=== PATIENT | female | born 1950 | race Caucasian/White ===

== ENCOUNTER 2017-07-20 08:12 | Inpatient (IN) | payer MEDICARE ==
[2017-07-19 15:06] LABS: BASOPHILS # (AUTO) 0.1 (0.0-0.1); BASOPHILS % 0.6 % (0.0-1.0); EOSINOPHILS # (AUTO) 0.2 (0.0-0.4); EOSINOPHILS % 1.7 % (0.0-6.0); HEMOGLOBIN 12.5 g/dL (12.0-16.0); LYMPHOCYTES # (AUTO) 2.9 (1.0-3.2); LYMPHOCYTES % 25.5 % (18.0-39.1); MEAN CORPUSCULAR HEMOGLOBIN 27.4 pg (28-32); MEAN CORPUSCULAR HGB CONC 33.8 g/dL (31-35); MEAN CORPUSCULAR VOLUME 81.1 fL (81-99); MONOCYTES # (AUTO) 0.8 (0.2-0.8); MONOCYTES % 6.8 % (4.4-11.3); NEUTROPHILS # (AUTO) 7.5 (2.1-6.9); PLATELET COUNT 265 x10e3/uL (140-360); RED BLOOD COUNT 4.56 x10e6/uL (3.6-5.1); RED CELL DISTRIBUTION WIDTH 12.8 % (11.7-14.4)
[2017-07-19 15:23] LABS: ANION GAP 13.5 mmol/L (8-16); CREATININE, SERUM 1.5 mg/dL (0.57-1.11); POTASSIUM 4.5 mmol/L (3.5-5.1)
--- NOTE | 2017-07-19 15:42 | Diagnostic Imaging Report ---
PROCEDURE: Frontal and lateral views of the chest. COMPARISON: None. INDICATIONS: PRE-OPERATIVE CHEST XRAY FOR SURGERY FINDINGS: Lines/tubes: None. Lungs: The lungs are well inflated and clear. There is no evidence of pneumonia or pulmonary edema. Pleura: There is no pleural effusion or pneumothorax. Heart and mediastinum: The heart and the mediastinum are normal. Atherosclerotic calcifications in the aorta. Bones: No acute bony abnormality. IMPRESSION: No acute cardiopulmonary disease. Dictated by: Stephane Mai M.D. on 07/19/2017 at 15:44 Electronically approved by: Stephane Mai M.D. on 07/19/2017 at 15:44
[~2017-07-20] VITALS: Ht 162.6 cm; Wt 81.6 kg
[~2017-07-20 08:12] MED LIST: ACETAMINOPHEN 1000 MG/100 ML 100 ML IV ONE; BUPIVACAINE HCL 0.5% INJ 30 ML VIAL INJ ONE; CEPHALEXIN500 MG PO; DEXAMETHASONE SOD PHOS INJ 4 MG/ML VIAL ONE; GLIMEPIRIDE2 MG PO; JANUVIA100 MG PO; LEVOTHYROXINE50 MCG PO; LISINOPRIL2.5 MG PO; NEOSTIGMINE 1 MG/ML 10ML VIAL ONE; PRAVASTATIN SOD20 MG PO
--- OUTSIDE RECORDS SUMMARY | 2017-07-20 08:13 | XMS REPORT ---
Author Author [facility] Address Unknown Phone Unavailable Care Team Providers Care Commissioner Of Officials Name Role Phone ARTEM AKHTAR Unavailable Unavailable Problems This patient has no known problems. Allergies, Adverse Reactions, Alerts This patient has no known allergies or adverse reactions. Medications This patient has no known medications. Results Test Description Test Time Test Comments Text Results Atomic Results Result Comments CHEST 2 VIEWS [facility] [address], [place] [address] Patient Name: KATHY ANTONIO MR #: [id number] : 1950 Age/Sex: 67/F Req #: [id number] Adm Physician: Ordered by: ARTEM AKHTAR DPM Report #: [id number] Location: OR Room/Bed: Procedure: [id number] DX/CHEST 2 VIEWS Exam Date: 07/19/17 Exam Time: 1508 REPORT STATUS: Signed PROCEDURE: Frontal and lateral views of the chest. COMPARISON: None. INDICATIONS: PRE-OPERATIVE CHEST XRAY FOR SURGERY FINDINGS: Lines/tubes: None. Lungs: The lungs are well inflated and clear. There is no evidence of pneumonia or pulmonary edema. Pleura: There is no pleural effusion or pneumothorax. Heart and mediastinum: The heart and the mediastinum are normal. Atherosclerotic calcifications in the aorta. Bones: No acute bony abnormality. IMPRESSION: No acute cardiopulmonary disease. Dictated by: Nicolasa Mai M.D. on 07/19/2017 at 15:44 Electronically approved by: Nicolasa Mai M.D. on 07/19/2017 at 15:44 Dictated By: NICOLASA MAI MD [id number] Transcribed By: JYOTHI on 07/19/17 1549 COPY TO: ARTEM AKHTAR DPM
[2017-07-20] MEDS ORDERED: VANCOMYCIN 1GM/NS 250 ML 250 ML ONE (08:38)
[2017-07-20] MEDS ORDERED: INSULIN REGULAR, HUMAN 100 UNIT/1 ML 3ML VIAL ONE (08:54)
[2017-07-20] MEDS ORDERED: MIDAZOLAM HCL 2 MG/2 ML VIAL ONE (11:35)
[2017-07-20] MEDS ORDERED: FENTANYL CITRATE/PF 100MCG/2 ML INJ ONE (11:35)
[2017-07-20 13:31] VITALS: BP 195/86
--- NOTE | 2017-07-20 15:04 | Operative Report ---
DATE OF PROCEDURE: July 20, 2017 PREOPERATIVE DIAGNOSES 1. Osteomyelitis, 4th digit, left foot. 2. Large ulcer, lateral aspect, 4th digit, left foot. POSTOPERATIVE DIAGNOSES 1. Osteomyelitis, 4th digit, left foot. 2. Large ulcer, lateral aspect, 4th digit, left foot. TITLE OF OPERATIONS 1. Partial amputation of the 4th digit of left foot with bone biopsy and removal of infected bone from the proximal phalanx and the base of the intermediate phalanx with a human tissue allograft. 2. Debridement of wound to bone with for the separate wound of the lateral aspect of the 4th digit, left foot. ANESTHESIA: General endotracheal. HEMOSTASIS: A left thigh tourniquet at 350 mmHg. PROCEDURE IN DETAIL: The patient was taken to the operating room in a mildly sedated state and placed upon the operating table in the supine position. Following induction of general anesthetic, the left lower extremity was elevated to 60 degrees to exsanguinate before inflating the pneumatic thigh tourniquet to 350 mmHg for hemostasis. The left lower extremity was placed on the operating table prior to performing the procedure. PROCEDURE #1: Partial amputation and debridement of bone, 4th digit, left foot with bone biopsy. A linear longitudinal incision was made overlying the proximal interphalangeal joint of the 4th digit of the left foot. The incision was deepened via sharp and blunt dissection down to the level of the dorsal capsular structure and extensor tendon. Transverse tenotomy was performed, and the underlying tissue was noted to be significantly destroyed bone with the entirety of the interphalangeal joint infected. The infected and necrotic bone was removed with a combination of sharp and blunt dissection and transverse bone cut just distal to the metatarsophalangeal joint. This bone thus having been removed and the underlying tissue debrided away, the base of the intermediate phalanx was also noted to be soft. It was therefore debrided away as well. All necrotic bone was resected from the wound. There area was irrigated with copious amounts of sterile saline solution. Human tissue allograft was inserted into the void in the form of a graft sheath. That area was then closed with 3-0 Vicryl and 4-0 nylon. Continuous to the bone but in a separate area, the lateral aspect of the 4th digit had a very large void. That area was debrided out completely. Irrigated with copious amounts of sterile saline solution. A packing with 0.25-inch Iodoform gauze was performed. It was noted to be viable after release of the pneumatic thigh tourniquet. It showed a normal hyperemic flush to all digits of the left foot. A postoperative dressing included Adaptic, 4 x 4, Kerlix, and Everette. Patient left the operating room with vital signs stable and in apparent satisfactory condition, having tolerated both the anesthetic and the procedure very well. She will be admitted for IV antibiotics for osteomyelitis. Bone biopsy will confirm and bone cultures should give details for sensitivity for IV upon discharge. The patient tolerated both anesthetic and the procedure very well, and will be following up on the floor and in my office after discharge. Job#: [id number] LEXIE
--- NOTE | 2017-07-20 15:39 | Consultation ---
DATE OF CONSULTATION: July 20, 2017 PODIATRY CONSULT REASON FOR CONSULTATION: Osteomyelitis 4th digit left foot. CHIEF COMPLAINT AND HISTORY OF CHIEF COMPLAINT: Ms. Savana Harper is a most pleasant 67-year-old female, presented to the ER earlier this week with a chronic osteomyelitis of the 4th digit of the left foot. She has a desire to try and save the toe, does not want a digital amputation at this point if at all possible. PREVIOUS MEDICAL HISTORY: Includes diabetes. No other significant previous medical history. SHE IS ALLERGIC TO MORPHINE AND METFORMIN. She sees Dr. López on an outpatient basis, who prior to referral already had her on oral antibiotic, cephalexin, and had ordered x-rays which were suspicious for osteomyelitis, sent her for an MRI which confirmed the presence of osteomyelitis in the 4th metatarsal proximal phalanx. REVIEW OF SYSTEMS: Otherwise negative, and the patient states she has otherwise been in her normal state of health. PHYSICAL EVALUATION LOWER EXTREMITY VASCULAR STATUS: The patient has palpable pedal pulses, both dorsalis pedis and posterior tibial. The skin temperature is warm. Capillary refills are all within normal limits. Results of a flow check in the office show adequate perfusion as well. NEUROLOGICALLY: She has a loss of protective sensation as evidenced by Toyah-Miller monofilament testing. DERMATOLOGICALLY: No other significant lesions are present. She does have a portal of entry or a lateral wound on the 4th digit at the level of the head of the proximal phalanx which is open and draining, approximately 1 cm in circumference. The dorsum of the foot is red as well as the toe being red with some swelling. MUSCULOSKELETAL: The aforementioned radiographs as well as followup radiographs taken in my office are confirmatory of osteomyelitis head of the proximal phalanx of the 4th digit of the left foot. MRI confirms as well. The patient is admitted for surgical debridement. What amounts to an arthroplasty or removal of the head of the proximal phalanx, base of the intermediate phalanx, and all infected and necrotic bone will be performed with a bone biopsy and deep wound and bone culture taken. The wound will be packed open to facilitate further healing, and a human tissue allograft will be inserted into the void to facilitate healing and minimize potential for digital loss. The patient understands the procedure and also understands that should she fail to heal the wound or toe at this level, a digital amputation would be recommended. Patient will need 6 to 8 weeks of IV antibiotics or recommended treatment per Dr. Burrows's consultation. Job#: [id number] EV
[2017-07-20] MEDS: VANCOMYCIN 1GM/NS 250 ML 250 ML IV SCH (16:20)
[2017-07-20] MEDS: CEFEPIME HCL 2 GM VIAL IV SCH (16:20)
[2017-07-20 16:36] VITALS: BP 168/84
[2017-07-20] MEDS ORDERED: SODIUM CHLORIDE 0.9% 250ML 250 ML ONE (16:51)
[2017-07-20] MEDS ORDERED: PROMETHAZINE HCL (IM) 25 MG/ML VIAL IM PRN (17:00)
[2017-07-20] MEDS ORDERED: PROMETHAZINE HCL 25 MG SUPP PR PRN (17:00)
[2017-07-20] MEDS ORDERED: HYDROCODONE/APAP 5MG-325MG TAB PO PRN (17:00)
[2017-07-20] MEDS ORDERED: ACETAMINOPHEN 325 MG TAB PO PRN (17:00)
[2017-07-20] MEDS ORDERED: MAGNESIUM HYDROXIDE 30 ML UDC PO PRN (17:00)
[2017-07-20] MEDS ORDERED: PROMETHAZINE 25MG/SOD CHL 0.9% 50 ML IV PRN (17:00)
[2017-07-20] MEDS ORDERED: ONDANSETRON HCL INJ 2 MG/ML VIAL ONE (17:43)
[2017-07-20] MEDS ORDERED: ACETAMINOPHEN 1000 MG/100 ML IV ONE (17:43)
[2017-07-20] MEDS ORDERED: LIDOCAINE HCL 2% LOCAL INJ 5 ML SDV VIAL INJ ONE (17:43)
[2017-07-20] MEDS ORDERED: PROPOFOL IV EMULSION 10 MG/ML 20 ML VIAL ONE (17:43)
[2017-07-20] MEDS: LISINOPRIL 2.5 MG TAB PO SCH (18:00)
[2017-07-20 18:12] VITALS: BP 182/78
[2017-07-20 20:31] VITALS: BP 180/88
[2017-07-20] MEDS ORDERED: ZOLPIDEM TARTRATE 5 MG TAB PO PRN (21:00)
[2017-07-20] MEDS: BISMUTH SUBSALICYLATE 262 MG/15 ML 8OZ BTL PO SCH (21:00)
[2017-07-21] VITALS (7 sets, daily range): BP systolic 115–180; BP diastolic 65–84
--- NOTE | 2017-07-21 00:30 | Consultation ---
DATE OF CONSULTATION: July 20, 2017 REASON FOR CONSULTATION: Recommendation for antibiotic in patient with osteomyelitis. Thank you so much for asking to see this patient. HISTORY OF PRESENT ILLNESS: This is a patient who is a pleasant 67-year-old female, who comes in with 4th toe infection. The patient has been seen by Dr. Rossi as an outpatient. The patient is known to have history of diabetes. The patient was admitted and underwent an I and D of the 4th toe. Infectious disease was consulted. She is telling me she had this problem with her toe for a while. PAST MEDICAL HISTORY: This patient has a history of diabetes, obesity, hypercholesterolemia. Hypothyroidism also. PAST SURGICAL HISTORY: Toe surgeries before. ALLERGIES: NKDA. SOCIAL HISTORY: There is no smoking, drug abuse, alcohol abuse. FAMILY HISTORY: Hypertension, diabetes. HOME MEDICATIONS 1. She is on glyburide 4 mg daily. 2. Pravastatin 20 mg daily. 3. Genvoya. 4. She is taking Keflex. REVIEW OF SYSTEMS: HEENT: Negative. PULMONARY: Negative. CARDIAC: Negative. : Negative. GI: Negative. SKIN: There is no other rash. Fourteen-point review all negative. LABORATORY DATA: Reviewed. X-ray also reviewed. White count 11.47, hemoglobin 12. Creatinine 1.5. Patient was admitted. Underwent debridement and amputation of her 4th toe. Infectious disease was consulted. This patient, as mentioned above, she had been on oral antibiotic and she had x-ray and MRI which was positive for osteomyelitis of the 4th metatarsal and proximal phalanx. The patient underwent amputation and is here postoperatively. Her cultures are still pending. Her laboratory data as above reviewed. IMPRESSION 1. Osteomyelitis, status post partial resection. Will put her on vancomycin 1 g q.24 h., cefepime 2 g q.24 h. Get a peripherally inserted central catheter line. Obtain a sedimentation rate and C-reactive protein. 2. She will need antibiotic for at least 6 weeks. Weekly complete blood count. Weekly chemistry panel, especially with the state of her kidney function. Will follow with you. Job#: [id number]
[2017-07-21] MEDS ORDERED: DEXTROSE 50% SYRINGE 50 ML IV PRN (00:45)
[2017-07-21] MEDS: INSULIN REGULAR, HUMAN 100 UNIT/1 ML 3ML VIAL SQ SCH ×5 (02:02→20:07)
[2017-07-21] MEDS: LEVOTHYROXINE SODIUM 50 MCG TAB PO SCH (06:00)
[2017-07-21] MEDS: SITAGLIPTIN 100 MG TAB PO SCH (08:04)
[2017-07-21] MEDS: GLIMEPIRIDE 2 MG TAB PO SCH (08:04)
[2017-07-21] MEDS: PRAVASTATIN 20 MG TAB PO SCH (08:04)
[2017-07-21] MEDS: LISINOPRIL 2.5 MG TAB PO SCH (08:04)
[2017-07-21] MEDS: BISMUTH SUBSALICYLATE 262 MG/15 ML 8OZ BTL PO SCH ×3 (08:05→20:07)
[2017-07-21] MEDS: CEFEPIME HCL 2 GM VIAL IV SCH (16:22)
[2017-07-21] MEDS: VANCOMYCIN 1GM/NS 250 ML 250 ML IV SCH (16:30)
--- NOTE | 2017-07-21 20:50 | Progress Note ---
DATE: July 21, 2017 Patient was seen at bedside. Denies any pain. Denies any shortness of breath. She is in a happy mood. OBJECTIVE: The dressing was clean, dry, and intact. Dressing was removed today. The sutures are intact. There are no signs or symptoms of infection. At this point, erythema and edema are consistent with the level of surgical intervention. Protective threshold is absent. ASSESSMENT: 1. Osteomyelitis, left foot. 2. Status post partial amputation, fourth digit. 3. Cellulitis, improving. 4. Diabetes mellitus with neuropathy. 5. Footdrop. PLAN: At this point, patient is responding well to treatment. The bone biopsy is still pending. The cultures at 24 hours are negative, but they are preliminary. She is to continue to be nonweightbearing. The dressing will stay intact. Once discharged, she will followup outpatient. Job#: [id number] DR AYON
[2017-07-22] VITALS (7 sets, daily range): BP systolic 145–186; BP diastolic 70–88
[2017-07-22] MEDS: LEVOTHYROXINE SODIUM 50 MCG TAB PO SCH (06:00)
[2017-07-22 07:53] LABS: BASOPHILS # (AUTO) 0.1 (0.0-0.1); BASOPHILS % 0.6 % (0.0-1.0); EOSINOPHILS # (AUTO) 0.2 (0.0-0.4); EOSINOPHILS % 2.2 % (0.0-6.0); HEMATOCRIT 36.1 % (34.2-44.1); HEMOGLOBIN 12.1 g/dL (12.0-16.0); LYMPHOCYTES # (AUTO) 3.6 (1.0-3.2); LYMPHOCYTES % 33.2 % (18.0-39.1); MEAN CORPUSCULAR HEMOGLOBIN 27.6 pg (28-32); MEAN CORPUSCULAR HGB CONC 33.5 g/dL (31-35); MEAN CORPUSCULAR VOLUME 82.4 fL (81-99); MONOCYTES # (AUTO) 0.6 (0.2-0.8); MONOCYTES % 5.1 % (4.4-11.3); NEUTROPHILS # (AUTO) 6.3 (2.1-6.9); NEUTROPHILS % 58.5 % (38.7-80.0); PLATELET COUNT 283 x10e3/uL (140-360); RED BLOOD COUNT 4.38 x10e6/uL (3.6-5.1); RED CELL DISTRIBUTION WIDTH 12.7 % (11.7-14.4)
[2017-07-22 08:22] LABS: ANION GAP 10.1 mmol/L (8-16); BLOOD UREA NITROGEN 25 mg/dL (7-26); BUN/CREATININE RATIO 31 (6-25); CALCIUM 9.5 mg/dL (8.4-10.2); CARBON DIOXIDE 23 mmol/L (22-29); CHLORIDE 106 mmol/L (98-107); CREATININE, SERUM 0.81 mg/dL (0.57-1.11); EST GLOMERULAR FILTRATION RATE > 60 ML/MIN (60-); GLUCOSE 210 mg/dL (74-118); POTASSIUM 4.1 mmol/L (3.5-5.1); SODIUM 135 mmol/L (136-145)
[2017-07-22] MEDS: GLIMEPIRIDE 2 MG TAB PO SCH (08:30)
[2017-07-22] MEDS: LISINOPRIL 2.5 MG TAB PO SCH (08:30)
[2017-07-22] MEDS: SITAGLIPTIN 100 MG TAB PO SCH (08:30)
[2017-07-22] MEDS: INSULIN REGULAR, HUMAN 100 UNIT/1 ML 3ML VIAL SQ SCH ×4 (08:30→20:34)
[2017-07-22] MEDS: BISMUTH SUBSALICYLATE 262 MG/15 ML 8OZ BTL PO SCH ×3 (08:30→20:07)
[2017-07-22] MEDS: PRAVASTATIN 20 MG TAB PO SCH (08:30)
[2017-07-22] MEDS: VANCOMYCIN 1GM/NS 250 ML 250 ML IV SCH (16:15)
[2017-07-22] MEDS: CEFEPIME HCL 2 GM VIAL IV SCH (16:15)
[2017-07-23] VITALS (9 sets, daily range): BP systolic 99–182; BP diastolic 58–83
[2017-07-23] MEDS: LEVOTHYROXINE SODIUM 50 MCG TAB PO SCH (05:15)
[2017-07-23 07:36] LABS: BASOPHILS # (AUTO) 0.1 (0.0-0.1); BASOPHILS % 0.6 % (0.0-1.0); EOSINOPHILS # (AUTO) 0.3 (0.0-0.4); EOSINOPHILS % 2.9 % (0.0-6.0); HEMATOCRIT 36.7 % (34.2-44.1); HEMOGLOBIN 12.1 g/dL (12.0-16.0); LYMPHOCYTES # (AUTO) 2.8 (1.0-3.2); MEAN CORPUSCULAR HEMOGLOBIN 27.1 pg (28-32); MEAN CORPUSCULAR VOLUME 82.3 fL (81-99); MONOCYTES # (AUTO) 0.7 (0.2-0.8); MONOCYTES % 6.8 % (4.4-11.3); NEUTROPHILS # (AUTO) 6.9 (2.1-6.9); NEUTROPHILS % 63.3 % (38.7-80.0); PLATELET COUNT 298 x10e3/uL (140-360); RED BLOOD COUNT 4.46 x10e6/uL (3.6-5.1); RED CELL DISTRIBUTION WIDTH 12.8 % (11.7-14.4)
[2017-07-23 07:43] LABS: INR 1.1; PROTHROMBIN TIME 13.4 seconds (11.9-14.5)
[2017-07-23 07:49] LABS: ANION GAP 11.2 mmol/L (8-16); BLOOD UREA NITROGEN 23 mg/dL (7-26); BUN/CREATININE RATIO 29 (6-25); CALCIUM 9.4 mg/dL (8.4-10.2); CARBON DIOXIDE 23 mmol/L (22-29); CHLORIDE 106 mmol/L (98-107); EST GLOMERULAR FILTRATION RATE > 60 ML/MIN (60-); GLUCOSE 172 mg/dL (74-118); POTASSIUM 4.2 mmol/L (3.5-5.1); SODIUM 136 mmol/L (136-145)
[2017-07-23] MEDS: INSULIN REGULAR, HUMAN 100 UNIT/1 ML 3ML VIAL SQ SCH ×4 (09:25→20:22)
--- NOTE | 2017-07-23 09:32 | Diagnostic Imaging Report ---
Date and Time: 07/23/2017 Procedure: Right internal jugular central venous catheter placement oxygraph operator: Dr. Mendieta Pre-operative diagnosis: Osteomyelitis Post-operative diagnosis: Osteomyelitis Conscious Sedation: None Additional Medications: Lidocaine 1% for local anesthesia Fluoroscopy time: 0.3 minutes Frontal Air Kerma: 7.76 mGy Contrast used: None Estimated blood loss: Minimal Blood products administered: None Specimens: None Implants: 7 [place] Islander 16 cm triple-lumen central venous catheter Condition at completion of procedure: Stable Disposition: Returned to floor DISCUSSION: Informed consent was obtained and documented in the medical record. The patient was placed in the supine position on the fluoroscopic table. Preliminary sonographic evaluation of the right cervical region showed patency of the internal jugular vein, evidenced by compressibility. The right neck was then prepped and draped in the standard sterile fashion. 1% lidocaine was infiltrated into the skin and subcutaneous tissues for local anesthesia. Then under continuous sonographic guidance an 18-gauge singlewall needle was used to access the right internal jugular vein. A permanent sonographic image was stored in the medical record. A 0.0 3 5-in. wire was advanced centrally into the inferior vena cava under fluoroscopic guidance. The needle was removed and the tract was dilated. Then a 7 [place] Island[place] 16 cm triple-lumen central venous catheter was advanced over the wire to a depth of 15 cm. The wire was removed and the catheter tip was positioned in the upper right atrium. Each lumen was tested and showed adequate bidirectional flow. The catheter was flushed with sterile saline and secured to the skin with monofilament nylon suture. A sterile dressing was applied. The patient tolerated the procedure well without immediate complication. FINDINGS: Patent right internal jugular vein. IMPRESSION: Successful placement of a 7 [place] Islander, 16 cm triple-lumen central venous catheter by a right internal jugular approach. Signed by: Dr. Emdund Mendieta M.D. on 07/23/2017 9:28 AM
--- NOTE | 2017-07-23 09:32 | Diagnostic Imaging Report ---
Date and Time: 07/23/2017 Procedure: Right internal jugular central venous catheter placement ultimate hoops scoreboard operator: Dr. Mendieta Pre-operative diagnosis: Osteomyelitis Post-operative diagnosis: Osteomyelitis Conscious Sedation: None Additional Medications: Lidocaine 1% for local anesthesia Fluoroscopy time: 0.3 minutes Frontal Air Kerma: 7.76 mGy Contrast used: None Estimated blood loss: Minimal Blood products administered: None Specimens: None Implants: 7 Vietnamese 16 cm triple-lumen central venous catheter Condition at completion of procedure: Stable Disposition: Returned to floor DISCUSSION: Informed consent was obtained and documented in the medical record. The patient was placed in the supine position on the fluoroscopic table. Preliminary sonographic evaluation of the right cervical region showed patency of the internal jugular vein, evidenced by compressibility. The right neck was then prepped and draped in the standard sterile fashion. 1% lidocaine was infiltrated into the skin and subcutaneous tissues for local anesthesia. Then under continuous sonographic guidance an 18-gauge singlewall needle was used to access the right internal jugular vein. A permanent sonographic image was stored in the medical record. A 0.0 3 5-in. wire was advanced centrally into the inferior vena cava under fluoroscopic guidance. The needle was removed and the tract was dilated. Then a 7 Vietnamese 16 cm triple-lumen central venous catheter was advanced over the wire to a depth of 15 cm. The wire was removed and the catheter tip was positioned in the upper right atrium. Each lumen was tested and showed adequate bidirectional flow. The catheter was flushed with sterile saline and secured to the skin with monofilament nylon suture. A sterile dressing was applied. The patient tolerated the procedure well without immediate complication. FINDINGS: Patent right internal jugular vein. IMPRESSION: Successful placement of a 7 Vietnamese, 16 cm triple-lumen central venous catheter by a right internal jugular approach. Signed by: Dr. Edmund Mendieta M.D. on 07/23/2017 9:28 AM
[2017-07-23] MEDS: LISINOPRIL 2.5 MG TAB PO SCH (09:38)
[2017-07-23] MEDS: PRAVASTATIN 20 MG TAB PO SCH (09:38)
[2017-07-23] MEDS: SITAGLIPTIN 100 MG TAB PO SCH (09:38)
[2017-07-23] MEDS: BISMUTH SUBSALICYLATE 262 MG/15 ML 8OZ BTL PO SCH ×4 (09:38→20:31)
[2017-07-23] MEDS: GLIMEPIRIDE 2 MG TAB PO SCH (09:38)
[2017-07-23] MEDS: CEFEPIME HCL 2 GM VIAL IV SCH (17:06)
[2017-07-23] MEDS: VANCOMYCIN 1GM/NS 250 ML 250 ML IV SCH (17:06)
[2017-07-23] MEDS: HYDROCODONE/APAP 5MG-325MG TAB PO PRN (17:35)
[2017-07-24] VITALS (7 sets, daily range): BP systolic 111–152; BP diastolic 64–84
[2017-07-24] MEDS: LEVOTHYROXINE SODIUM 50 MCG TAB PO SCH (05:47)
[2017-07-24] MEDS: INSULIN REGULAR, HUMAN 100 UNIT/1 ML 3ML VIAL SQ SCH ×5 (07:30→21:00)
[2017-07-24] MEDS: GLIMEPIRIDE 2 MG TAB PO SCH (08:47)
[2017-07-24] MEDS: BISMUTH SUBSALICYLATE 262 MG/15 ML 8OZ BTL PO SCH ×3 (09:00→20:21)
[2017-07-24] MEDS: LISINOPRIL 2.5 MG TAB PO SCH (09:16)
[2017-07-24] MEDS: SITAGLIPTIN 100 MG TAB PO SCH (09:16)
[2017-07-24] MEDS: HYDROCODONE/APAP 5MG-325MG TAB PO PRN ×2 (11:20→20:22)
[2017-07-24] MEDS: VANCOMYCIN 1GM/NS 250 ML 250 ML IV SCH ×2 (15:46→20:21)
[2017-07-24] MEDS: CEFEPIME HCL 2 GM VIAL IV SCH (17:07)
[2017-07-24] MEDS: SIMVASTATIN 20 MG TAB PO SCH (20:21)
[2017-07-25] VITALS: BP 121/60
[2017-07-25 04:00] VITALS: BP 132/62
[2017-07-25] MEDS: VANCOMYCIN 1GM/NS 250 ML 250 ML IV SCH ×2 (04:00→16:40)
[2017-07-25] MEDS: LEVOTHYROXINE SODIUM 50 MCG TAB PO SCH (06:42)
[2017-07-25 08:00] VITALS: BP 114/53
[2017-07-25] MEDS: INSULIN REGULAR, HUMAN 100 UNIT/1 ML 3ML VIAL SQ SCH ×3 (08:00→16:30)
[2017-07-25] MEDS: GLIMEPIRIDE 2 MG TAB PO SCH (08:10)
[2017-07-25] MEDS: SITAGLIPTIN 100 MG TAB PO SCH (08:10)
[2017-07-25] MEDS: LISINOPRIL 2.5 MG TAB PO SCH (08:10)
[2017-07-25] MEDS: BISMUTH SUBSALICYLATE 262 MG/15 ML 8OZ BTL PO SCH (09:00)
[2017-07-25] MEDS ORDERED: BISMUTH SUBSALICYLATE 262 MG/15 ML 8OZ BTL PO PRN (10:30)
[2017-07-25 12:00] VITALS: BP 144/76
[2017-07-25 16:00] VITALS: BP_SYST 133; BP_SYST 145; BP_DIAS 67; BP_DIAS 69
[2017-07-25] MEDS: CEFEPIME HCL 2 GM VIAL IV SCH (16:30)
[2017-07-25 20:00] VITALS: BP_SYST 137; BP_SYST 145; BP_DIAS 83; BP_DIAS 85
[2017-07-25] MEDS: SIMVASTATIN 20 MG TAB PO SCH (20:38)
[2017-07-26] VITALS (7 sets, daily range): BP systolic 107–158; BP diastolic 65–82
[2017-07-26] MEDS: VANCOMYCIN 1GM/NS 250 ML 250 ML IV SCH ×2 (04:00→16:00)
[2017-07-26] MEDS: LEVOTHYROXINE SODIUM 50 MCG TAB PO SCH (06:02)
[2017-07-26] MEDS: SITAGLIPTIN 100 MG TAB PO SCH (08:00)
[2017-07-26] MEDS: LISINOPRIL 2.5 MG TAB PO SCH (08:00)
[2017-07-26] MEDS: GLIMEPIRIDE 2 MG TAB PO SCH (08:00)
[2017-07-26] MEDS: INSULIN REGULAR, HUMAN 100 UNIT/1 ML 3ML VIAL SQ SCH ×3 (08:15→16:26)
[2017-07-26] MEDS ORDERED: CEFEPIME HCL 2 GM VIAL IV SCH (16:15)
== END 2017-07-26 18:32 | disposition home health service (06) | DRG 617 ==
LOC: OR 08:12 → MED/SURG3 13:01
PROVIDERS: ADMIT Internal Medicine; ATTEND Internal Medicine
PROC: 0QBR0ZZ Excision of Left Toe Phalanx, Open Approach (ICD-10-PCS; 2017-07-20)
PROC: 0HRNXK3 Replacement of Left Foot Skin with Nonautologous Tissue Substitute, Full Thickness, External Approach (ICD-10-PCS; 2017-07-20)
PROC: 0Y6W0Z1 Detachment at Left 4th Toe, High, Open Approach (ICD-10-PCS; principal; 2017-07-20 10:00)
CPT/HCPCS: 36415; 36556; 71046; 74470; 76000; 76937; 77001; 80048; 80202; 82948; 85025; 85610; 85730; 87071; 87205; 88305; 88311; 93005; 97139; C1751; J0692; J1100; J2001; J2250; J2405; J2710; J3370; J7050